=== PATIENT | female | born 2000 | race Caucasian/White ===

== ENCOUNTER → 2023-05-15 | Outpatient (CLI) | payer OTHER ==
--- NOTE | 2023-05-15 20:29 | CT ---
EXAMINATION TYPE: CT abdomen pelvis w con DATE OF EXAM: 05/15/2023 HISTORY: pain. hx of ovarian cysts CT DLP: 1427.6mGycm Automated Exposure Control for Dose Reduction was Utilized. CONTRAST: CT scan of the abdomen and pelvis is performed with oral and with IV Contrast, patient injected with 100ML mL of Isovue 300. COMPARISON: None. FINDINGS: LUNG BASES: No significant abnormality is appreciated. LIVER/GB: Cholecystectomy clips are present. PANCREAS: No significant abnormality is seen. SPLEEN: No significant abnormality is seen. ADRENALS: No significant abnormality is seen. KIDNEYS: Symmetrical corticomedullary uptake and excretion without hydronephrosis seen bilaterally. BOWEL: Oral contrast reaches level of the terminal ileum making evaluation of the colon slightly subo ptimal. No suspicious small or large bowel dilatation. No inflammatory change at base of cecum. Appen leda not seen and may be surgically absent. Contrast filled moderately distended stomach. UTERUS/ADNEXA: Anteverted uterus left ovary normal in size axial image 70. Right ovary slightly large r with oval hypodense 4.4 x 2.9 cm lesion axial image 71 could reflect ovarian cyst. Pelvic ultrasoun d can be performed to further evaluate if desired.. LYMPH NODES: No greater than 1cm abdominal or pelvic lymph nodes are appreciated. Few prominent but s ubcentimeter lymph nodes throughout the mesentery. OSSEOUS STRUCTURES: Moderate disc space narrowing lumbosacral junction. OTHER: No significant additional abnormality is seen. IMPRESSION: No significant acute finding is seen to account for patient's clinical symptoms. There is 4.4 cm right ovarian oval low dense lesion favoring ovarian cyst but can be better characterized wit h pelvic ultrasound if desired.
== END | disposition home or self-care (01) ==
LOC: RADCTMAIN 17:08
PROVIDERS: ATTEND Family Medicine
DX: N83.201 Unspecified ovarian cyst, right side (principal); N83.8 Other noninflammatory disorders of ovary, fallopian tube and broad ligament; N80.109 Endometriosis of ovary, unspecified side, unspecified depth
CPT/HCPCS: 74177; Q9967

== ENCOUNTER → 2024-02-27 | Outpatient (CLI) | payer OTHER ==
[2024-02-27 15:21] VITALS: BP 110/78; PULSE 103; RESP 18; TEMP 98.5
--- NOTE | 2024-02-27 15:44 | P.SLEEP ---
History of Present Illness DATE: 02/27/2024 CONSULTATION/NEW PATIENT EVALUATION HISTORY OF PRESENT ILLNESS/SLEEP-WAKE EVALUATION: 23-year-old lady had been e valuated in the sleep center for possible obstructive sleep apnea hypopnea syndrome. SLEEP SCHEDULE: Usually sleep schedule from 9:30 PM to 7 AM on weekdays and from 11 PM to 10 AM on weekend. FALLING ASLEEP: No problems with falling asleep, although there is a TV in bedroom. DURING SLEEP: Patient sleeps in different position, has positive history of palpitation. She may get out of bed once during the night. No history of hypnogogical hallucinations, sleep paralysis, or cataplexy. DURING THE DAY/WAKE STATE: In the morning patient wake up tired, has difficulties to pay attention, has problems with concentration and depression. [place] sleepiness scale is increased to 13. Usually patient does not take naps. PAST MEDICAL HISTORY: Headaches, neck pain, history of asthma, cyanosis pr oblems, bronchitis, anemia. PAST SURGICAL HISTORY: Tonsillectomy, cholecystectomy. MEDICATIONS: Melatonin several times a week, multivitamins, Aleve. SOCIAL HISTORY: Negative for smoking or using alcohol, alcohol. FAMILY HISTORY: Sleep apnea, cancer, diabetes, acid reflux. REVIEW OF SYSTEMS: Headaches, neck pain, tiredness and sleepiness during the day. No fevers. No double vision. No recent chest pain. No shortness of breath. No abdominal pain. No bleeding episodes. No blood in urine. No seizure episodes. PHYSICAL EXAMINATION: GENERAL: A pleasant patient without any distress. VITAL SIGNS: Please see below, body mass index 35.9. HEENT: PERRLA, EOMI. Evaluation of oropharynx showed tongue protrudes midline, low position of soft palate Mallampati 34. NECK: Supple. No JVD. Thyroid is not palpable. 17 inches in circumference. LUNGS: Clear to percussion and to auscultation. Good air exchange. No wheezing or rhonchi. HEART: S1, S2 regular. No murmurs, gallops or rubs. ABDOMEN: Soft and nontender. Bowel sounds are present. No organomegaly appreciated. EXTREMITIES: No clubbing or cyanosis. PARTS RUNNER: Awake, alert, and oriented x3. Cranial nerves 2 to 7 intact. There is no fasciculation or atrophy noted. No focal deficits observed. ASSESSMENT: 1. Low position of soft palate Mallampati 34, wide neck 17 inches in circumference, sleepiness [place] Sleepiness Scale increased to 13. Obstructive sleep apnea hypopnea syndrome. 2. Obesity, BMI 35.9. 3. Headaches. 4. Neck pain. 5 history of sleep talking. 6 . History of asthma. 7. History of sinus problems. 8. History of anemia. 9 . Status post tonsillectomy. 10. Status post cholecystectomy. PLAN: 1. Home sleep apnea test for evaluation of patient's breathing during sleep. 2. Following plan after reading sleep study. 3. Preferable position during sleep on the side. 4. No driving if patient feels any sleepiness. Patient is aware of civil and criminal liability for unsafe driving. 5. Sleep hygiene with regular sleep time for at least 7.5-8 hours. 6. Watching and losing weight. Thank you very much for referring this patient for consultation. Sincerely, Fer Martinez MD, PhD, FAASM. Diplomat of [employer], Sleep Medicine Board by [employer] [facility] [place] Past Medical History Past Medical History: Asthma Additional Past Medical History / Comment(s): ANEMIA, BRONCHITIS, HEADACHES, History of Any Multi-Drug Resistant Organisms: None Reported Past Surgical History: Cholecystectomy, Tonsillectomy Past Psychological History: No Psychological Hx Reported Smoking Status: Never smoker Past Alcohol Use History: Rare Past Drug Use History: None Reported - Past Family History Father Family Medical History: Diabetes Mellitus, Sleep Apnea/CPAP/BIPAP Additional Family Medical History / Comment(s): SNORING, Mother Family Medical History: Sleep Apnea/CPAP/BIPAP Additional Family Medical History / Comment(s): (SNORING, THYROID, LIVER PROBLEMS. Medications and Allergies Home Medications Medication Instructions Recorded Confirmed Type Melatonin 6 mg PO PRN MDD 6 02/27/24 History Physical Exam Vitals: Vital Signs Temp Pulse Resp BP Pulse Ox 02/27/24 14:54 98.5 F 103 H 18 110/78 98 Intake and Output 02/27/24 02/27/24 02/27/24 06:59 14:59 22:59 Other: Weight 99.45 kg Sleep Note - Sleep Data ESS Total: 13 - Sleep Note Sleep Note: Temperature: 98.5 F Pulse Rate: 103 Respiratory Rate: 18 Blood Pressure: 110/78 SpO2: 98 Height: 5 ft 5.33 in Weight: 99.45 kg BMI: Neck Circumference: 17
== END ==
LOC: MERGE 14:20 → 3 N SLEEP 14:28
PROVIDERS: ATTEND Internal Medicine
DX: G47.33 Obstructive sleep apnea (adult) (pediatric) (principal); E66.9 Obesity, unspecified; M54.2 Cervicalgia; R51.9 Headache, unspecified; G47.8 Other sleep disorders; J32.9 Chronic sinusitis, unspecified; D64.9 Anemia, unspecified; Z98.890 Other specified postprocedural states; Z90.49 Acquired absence of other specified parts of digestive tract; Z68.35 Body mass index [BMI] 35.0-35.9, adult
CPT/HCPCS: 99211

== ENCOUNTER → 2024-03-05 | Outpatient (CLI) | payer OTHER ==
--- NOTE | 2024-03-06 16:00 | P.PCN ---
Description of Procedure: CLINICAL: A home sleep apnea test has been done for confirmation of possible obstructive sleep apnea-hypopnea syndrome. DESCRIPTION OF PROCEDURE: RESULTS: Recording time was 8 hours 53 minutes. Evaluation time was 8 hours 41 minutes. Evaluation time is sufficient for making conclusion about results of the test. Raw data of sleep recording has been reviewed and is adequate. Respiratory channel showed 6 apneas and 6 hypopneas. Apnea-hypopnea index was 1.4 per hour. Pulse rate in the range between minimum 50, maximum 113, average 71 by computer calculation. Lowest desaturation was 92%. IMPRESSION: 1. No significant respiratory abnormalities have been documented during the sleep study. Normal oxygenation during sleep 2. Snoring have been documented during the sleep study. 3. [place] Sleepiness Scale increased to 13 which indicates sleepiness during the day. Please see other impressions from consultation. PLAN: 1. I will see patient for follow-up visit to explain results of the test and to discuss following plan. 2. Sleep hygiene with regular time in bed for at least 8 hours. 3. Watching and losing weight. 4. No driving if feeling any sleepiness. Thank you very much for allowing me to participate in the management of your patient. Sincerely, Fer Martinez MD, PhD, FAASM Diplomat of [employer] Sleep Medicine Board of [employer] [facility] [place]
== END ==
LOC: 3 N SLEEP 17:00
PROVIDERS: ATTEND Internal Medicine
DX: G47.33 Obstructive sleep apnea (adult) (pediatric) (principal); G47.10 Hypersomnia, unspecified

== ENCOUNTER → 2024-05-15 | Outpatient (CLI) | payer OTHER ==
[2024-05-15 15:09] VITALS: BP 113/79; PULSE 92; RESP 16; TEMP 98.4
--- NOTE | 2024-05-15 15:54 | P.PROGSL ---
Subjective DATE: 05/15/2024 FOLLOW UP VISIT. Patient returned to sleep center for follow-up visit to discuss results of home sleep apnea test and recommendations. I discussed results of home sleep apnea test with patient in details. Total apnea hypopnea index 1.4 which is in normal range. Lowest oxygen level is 92, which is normal. Patient continued to feel episodes of sleepiness during the day.. . [place] sleepiness scale is increased to 13. MEDICATIONS:1. Ventolin During physical exam: GENERAL: A pleasant patient without any distress. VITAL SIGNS: Please see below, weight 212 pounds, BMI 35.2. HEENT: PERRLA, EOMI. NECK: Supple. No JVD. LUNGS: Clear to percussion and to auscultation. Good air exchange. No wheezing or rhonchi. HEART: S1, S2 regular. ABDOMEN: Soft and nontender. EXTREMITIES: No clubbing or cyanosis. PILOT CAN ROUTER: Awake, alert, and oriented x3. No focal deficit. Impressions: 1. No significant respiratory abnormalities during his home sleep apnea test. Normal oxygenation during sleep. 2. Snoring have been documented during home sleep apnea test. 3. Obesity BMI 35.2. 4. Patient has symptoms of sleepiness. [place] Sleepiness Scale increased to 13. 5. History of asthma 6. History of sinus problems. Plan: 1. I discussed with patient possibility of multiple sleep latency test for ob jective fibrillation symptoms of excessive daytime sleepiness and possibly after that if necessary pharmacotherapy for excessive daytime sleepiness. Patient will think about that. 2. Sleep hygiene with regular time in bed for at least 8 hours. 3. Precautions related to driving. No driving if feel any sleepiness. Patient is aware about civil and criminal liability for unsafe driving, promised to follow recommendations. Thank you very much for allowing me to participate in the management of your patient. Fer Martinez MD, PhD, FAASM. Diplomat of [employer] [employer], Sleep Medicine Board by [employer] [facility] [place] cc: Mary Randall DO Objective - Vital Signs Vital Signs: Vital Signs Temp 98.4 F 05/15/24 15:08 Pulse 92 05/15/24 15:08 Resp 16 05/15/24 15:08 BP 113/79 05/15/24 15:08 Pulse Ox 98 05/15/24 15:08 FiO2 Intake & Output 05/14/24 05/15/24 05/15/24 18:59 06:59 18:59 Weight 96.162 kg Home Medications: Home Medications Medication Instructions Recorded Confirmed Type Melatonin 6 mg PO PRN MDD 6 02/27/24 History
== END ==
LOC: 3 N SLEEP 14:41
PROVIDERS: ATTEND Internal Medicine
DX: R06.83 Snoring (principal); E66.9 Obesity, unspecified; G47.10 Hypersomnia, unspecified; Z68.35 Body mass index [BMI] 35.0-35.9, adult; Z87.09 Personal history of other diseases of the respiratory system
CPT/HCPCS: 99212

== ENCOUNTER 2024-08-24 03:34 | Inpatient (IN) | payer OTHER ==
[2024-08-24] MEDS: SODIUM CHLORIDE 0.9% 1,000 ML IV STA (04:30)
[2024-08-24] MEDS: HYDROmorphone 1 MG/ML 1 ML SYRINGE IVP STA (04:32)
[2024-08-24 04:52] LABS: Basophils % (A) 0 %; Eosinophils # (A) 0.1 k/uL (0-0.7); Eosinophils % (A) 1 %; HCT 38.7 % (34.0-46.0); HGB 13.8 gm/dL (11.4-16.0); Lymphocytes # (A) 0.9 k/uL (1.0-4.8); Lymphocytes % (A) 6 %; MCH 30.1 pg (25.0-35.0); MCHC 35.6 g/dL (31.0-37.0); MCV 84.5 fL (80.0-100.0); Mean Platelet Volume 7.4; Monocytes # (A) 0.6 k/uL (0-1.0); Monocytes % (A) 5 %; Neutrophils # (A) 11.9 k/uL (1.3-7.7); Neutrophils % (A) 88 %; Platelet Count 260 k/uL (150-450); RBC 4.58 m/uL (3.80-5.40); RDW 13.5 % (11.5-15.5); WBC 13.6 k/uL (3.8-10.6)
[2024-08-24 05:08] LABS: ALT 26 U/L (4-34); AST 31 U/L (14-36); African American GFR (CKD) >90 (>60 ml/min/1.73 sqM); Albumin 4.6 g/dL (3.5-5.0); Alkaline Phosphatase 83 U/L (38-126); Anion Gap 14 mmol/L; Blood Urea Nitrogen 7 mg/dL (7-17); Calcium 9.7 mg/dL (8.4-10.2); Carbon Dioxide 17 mmol/L (22-30); Chloride 104 mmol/L (98-107); Glucose 160 mg/dL (74-99); Non-African American GFR(CKD) >90 (>60 ml/min/1.73 sqM); Potassium 3.8 mmol/L (3.5-5.1); Sodium 135 mmol/L (137-145); Total Bilirubin 1.5 mg/dL (0.2-1.3); Total Protein 7.2 g/dL (6.3-8.2)
[2024-08-24 05:53] LABS: Appearance,Urine Clear (Clear); Bilirubin,Urine Negative (Negative); Blood,Urine Negative (Negative); Color,Urine Colorless; Glucose,Urine (UA) Negative (Negative); Ketones,Urine Negative (Negative); Leukocyte Esterase,Urine Negative (Negative); Nitrite,Urine Negative (Negative); Protein,Urine Negative (Negative); Specific Gravity,Urine 1.005 (1.001-1.035); Urobilinogen,Urine <2.0 mg/dL (<2.0)
--- NOTE | 2024-08-24 06:19 | ED ---
General Adult HPI - General Chief complaint: Nausea/Vomiting/Diarrhea Stated complaint: Fever, Tachy Time Seen by Provider: 08/24/24 03:40 Source: EMS Mode of arrival: EMS - History of Present Illness Initial comments: 23-year-old female presents the emergency department reporting diffuse bodyaches and tachycardia. Patient states that she has had symptoms since 8 PM. She has diffuse myalgias with pain "all over". Reports that she found that she had a fever at home and therefore took some Tylenol around midnight. She feels as if her heart is racing. She denies any focal pain. No vomiting. No abdominal pain. Does admit to chest pain with shortness of breath. Denies history of cardiac disease. Denies any sick with similar symptoms. No concern for pregn zana. No vaginal bleeding or discharge. Patient is wearing a boot on her right leg. States that she twisted it at work a couple weeks ago. Denies history of DVT or PE. No significant swelling of the left lower extremity. No other alleviating, precipitating or modifying factors - Related Data Previous Rx's Medication Instructions Recorded Famotidine [Pepcid] 20 mg PO DAILY #7 tablet 08/27/24 cefUROXime axetiL [Ceftin] 500 mg PO BID 7 Days #14 tab 08/27/24 Allergies Allergy/AdvReac Type Severity Reaction Status Date / Time No Known Allergies Allergy Verified 08/24/24 09:40 Review of Systems ROS Statement: Those systems with pertinent positive or pertinent negative responses have been documented in the HPI. ROS Other: All systems not noted in ROS Statement are negative. Past Medical History Past Medical History: Asthma Additional Past Medical History / Comment(s): ANEMIA, BRONCHITIS, HEADACHES, History of Any Multi-Drug Resistant Organisms: None Reported Past Surgical History: Cholecystectomy, Tonsillectomy Past Psychological History: No Psychological Hx Reported Smoking Status: Never smoker Past Alcohol Use History: Rare Past Drug Use History: None Reported - Past Family History Father Family Medical History: Diabetes Mellitus, Sleep Apnea/CPAP/BIPAP Additional Family Medical History / Comment(s): SNORING, Mother Family Medical History: Sleep Apnea/CPAP/BIPAP Additional Family Medical History / Comment(s): (SNORING, THYROID, LIVER PROBLEMS. General Exam General appearance: alert, in no apparent distress Head exam: Present: atraumatic, normocephalic, normal inspection Eye exam: Present: normal appearance, PERRL, EOMI. Absent: scleral icterus, conjunctival injection, periorbital swelling ENT exam: Present: normal exam, mucous membranes moist Neck exam: Present: normal inspection. Absent: tenderness, meningismus, lymphadenopathy Respiratory exam: Present: normal lung sounds bilaterally. Absent: respiratory distress, wheezes, rales, rhonchi, stridor Cardiovascular Exam: Present: normal rhythm, tachycardia, normal heart sounds. Absent: systolic murmur, diastolic murmur, rubs, gallop, clicks GI/Abdominal exam: Present: soft, normal bowel sounds. Absent: distended, tenderness, guarding, rebound, rigid Extremities exam: Present: normal inspection, full ROM, normal capillary refill. Absent: tenderness, pedal edema, joint swelling, calf tenderness Back exam: Present: normal inspection Neurological exam: Present: alert, oriented X3, CN II-XII intact Psychiatric exam: Present: normal affect, normal mood Skin exam: Present: warm, dry, intact, normal color. Absent: rash Course Vital Signs 08/24/24 08/24/24 08/24/24 03:37 05:00 06:08 Temperature 99.3 F 99.1 F 98.8 F Pulse Rate 152 H 116 H 126 H Respiratory 24 20 18 Rate Blood Pressure 122/85 109/76 115/78 O2 Sat by Pulse 98 96 97 Oximetry 08/24/24 08/24/24 08/24/24 06:47 07:41 10:03 Temperature 98.2 F Pulse Rate 104 H 115 H 109 H Respiratory 18 18 16 Rate Blood Pressure 104/67 113/64 118/82 O2 Sat by Pulse 96 97 98 Oximetry 08/24/24 08/24/24 08/24/24 10:38 12:49 13:39 Temperature Pulse Rate 104 H 73 78 Respiratory 16 18 16 Rate Blood Pressure 118/82 108/69 102/59 O2 Sat by Pulse 99 98 97 Oximetry 08/24/24 08/24/24 16:32 17:44 Temperature Pulse Rate 68 73 Respiratory 18 16 Rate Blood Pressure 107/64 100/65 O2 Sat by Pulse 98 99 Oximetry Medical Decision Making - Medical Decision Making Was pt. sent in by a medical professional or institution (, PA, ART [facility]PRAISER, urgent care, hospital, or [facility]...) When possible be specific @ -No Did you speak to anyone other than the patient for history (EMS, parent, family, police, friend...)? What history was obtained from this source @ -Spoke with EMS for history Did you review nursing and triage notes (agree or disagree)? Why? @ -I reviewed and agree with nursing and triage notes Were old charts reviewed (outside hosp., previous admission, EMS record, old EKG, old radiological studies, urgent care reports/EKG's, [facility] records)? Report findings @ -No old charts were reviewed Differential Diagnosis (chest pain, altered mental status, abdominal pain women, abdominal pain men, vaginal bleeding, weakness, fever, dyspnea, syncope, headache, dizziness, GI bleed, back pain, seizure, CVA, palpatations, mental health, musculoskeletal)? @ -Differential Dyspnea: Coronary syndrome, arrhythmia, tamponade, asthma, COPD, pulmonary embolism, pneumonia, pneumothorax, pulmonary effusion, anaphylaxis, diabetic ketoacidosis, flailed chest, pulmonary contusion, diaphragmatic rupture, anemia, neuromuscular, this is not meant to be an all-inclusive list. Differential Fever: Pneumonia, viral URI, endocarditis, myocarditis, pericarditis, otitis, sinusitis, peritonsillar Abscess, retropharyngeal Abscess, epiglottitis, peritonitis, appendicitis, Hyacinth cystitis, diverticulitis, hepatitis, colitis, UTI, PID, TOA, pyelonephritis, prostatitis, epididymitis, meningitis, encephalitis, pulmonary embolism, CVA, thyroid storm, pancreatitis, adrenal crisis, cavernous sinus thrombosis, this is not meant to be an all-inclusive list. EKG interpreted by me (3pts min.). @ -Yes and demonstrates sinus tachycardia with a rate of 142. LA interval 127. QRS 86. QTc of 384. No acute ST segment elevations or depressions X-rays interpreted by me (1pt min.). @ -Yes and demonstrates no acute process CT interpreted by me (1pt min.). @ -None done U/S interpreted by me (1pt. min.). @ -None done What testing was considered but not performed or refused? (CT, X-rays, U/S, lab s)? Why? @ -None What meds were considered but not given or refused? Why? @ -None Did you discuss the management of the patient with other professionals (professionals i.e. , PA, [facility]ER, lab, RT, psych nurse, health social work professor, manager corporate marketing, teacher, customer service security officer, transplant case manager)? Give summary @ -Spoke with Dr. Grant for admission Was smoking cessation discussed for >3mins.? @ -No Was critical care preformed (if so, how long)? @ -No Were there social determinants of health that impacted care today? How? (Homelessness, low income, unemployed, alcoholism, drug addiction, transportation, low edu. Level, literacy, decrease access to med. care, nursing home, rehab)? @ -No Was there de-escalation of care discussed even if they declined (Discuss DNR or withdrawal of care, Hospice)? DNR status @ -No What co-morbidities impacted this encounter? (DM, HTN, Smoking, COPD, CAD, Cancer, CVA, ARF, Chemo, Hep., AIDS, mental health diagnosis, sleep apnea, morbid obesity)? @ -None Was patient admitted / discharged? Hospital course, mention meds given and route, prescriptions, significant lab abnormalities, going to OR and other pertinent info. @ -Upon arrival patient seen and evaluated in room 19. Thorough history and physical exam was performed. Patient does present to the emergency department in extreme distress. She is tachycardic and moaning. IV was established. Laboratory studies are conducted. Chest x-ray was performed. Upon return of the results they are discussed with the patient. Laboratory studies and imaging appear normal. Patient is adamant that she is sick and something is wrong. I did explain to her that she would require further admission for further management. Will admit for myalgias and tachycardia. Spoke with Dr. Grant for admission Undiagnosed new problem with uncertain prognosis? @ -Yes Drug Therapy requiring intensive monitoring for toxicity (Heparin, Nitro, Insulin, Cardizem)? @ -No Were any procedures done? @ -No Diagnosis/symptom? @ -Acute myalgias, acute tachycardia Acute, or Chronic, or Acute on Chronic? @ -Acute Uncomplicated (without systemic symptoms) or Complicated (systemic symptoms)? @ -Complicated Side effects of treatment? @ -No Exacerbation, Progression, or Severe Exacerbation? @ -No Poses a threat to life or bodily function? How? (Chest pain, USA, SD, pneumonia, PE, COPD, DKA, ARF, appy, cholecystitis, CVA, Diverticulitis, Homicidal, Suicidal, threat to staff... and all critical care pts) @ -No - Lab Data Result diagrams: 08/26/24 04:41 08/26/24 04:41 Lab Results 08/24/24 08/24/24 08/24/24 Range/Units 04:21 04:21 04:21 WBC 13.6 H (3.8-10.6) k/uL RBC 4.58 (3.80-5.40) m/uL Hgb 13.8 (11.4-16.0) gm/dL Hct 38.7 (34.0-46.0) % MCV 84.5 (80.0-100.0) fL MCH 30.1 (25.0-35.0) pg MCHC 35.6 (31.0-37.0) g/dL RDW 13.5 (11.5-15.5) % Plt Count 260 (150-450) k/uL MPV 7.4 Neutrophils % 88 % Lymphocytes % 6 % Monocytes % 5 % Eosinophils % 1 % Basophils % 0 % Neutrophils # 11.9 H (1.3-7.7) k/uL Lymphocytes # 0.9 L (1.0-4.8) k/uL Monocytes # 0.6 (0-1.0) k/uL Eosinophils # 0.1 (0-0.7) k/uL Basophils # 0.0 (0-0.2) k/uL D-Dimer (<0.60) mg/L FEU Sodium 135 L (137-145) mmol/L Potassium 3.8 (3.5-5.1) mmol/L Chloride 104 (98-107) mmol/L Carbon Dioxide 17 L (22-30) mmol/L Anion Gap 14 mmol/L BUN 7 (7-17) mg/dL Creatinine 0.52 (0.52-1.04) mg/dL Est GFR (CKD-EPI)AfAm >90 (>60 ml/min/1.73 sqM) Est GFR (CKD-EPI)NonAf >90 (>60 ml/min/1.73 sqM) Glucose 160 H (74-99) mg/dL Lactic Ac Sepsis Rflx Plasma Lactic Acid Miguelangel (0.7-2.0) mmol/L Calcium 9.7 (8.4-10.2) mg/dL Total Bilirubin 1.5 H (0.2-1.3) mg/dL AST 31 (14-36) U/L ALT 26 (4-34) U/L Alkaline Phosphatase 83 (38-126) U/L Total Protein 7.2 (6.3-8.2) g/dL Albumin 4.6 (3.5-5.0) g/dL TSH (0.465-4.680) mIU/L Urine Color Urine Appearance (Clear) Urine pH (5.0-8.0) Ur Specific [place] (1.001-1.035) Urine Protein (Negative) Urine Glucose (UA) (Negative) Urine Ketones (Negative) Urine Blood (Negative) Urine Nitrite (Negative) Urine Bilirubin (Negative) Urine Urobilinogen (<2.0) mg/dL Ur Leukocyte Esterase (Negative) Urine HCG, Qual (Not Detectd) Urine Opiates Screen (NotDetected) Ur Oxycodone Screen (NotDetected) Urine Methadone Screen (NotDetected) Ur Barbiturates Screen (NotDetected) U Tricyclic Antidepress (NotDetected) Ur Phencyclidine Scrn (NotDetected) Ur Amphetamines Screen (NotDetected) U Methamphetamines Scrn (NotDetected) U Benzodiazepines Scrn (NotDetected) Urine Cocaine Screen (NotDetected) U Marijuana (THC) Screen (NotDetected) Heterophile Antibody Negative (Negative) Influenza Type A (PCR) (Not Detectd) Influenza Type B (PCR) (Not Detectd) RSV (PCR) (Not Detectd) SARS-CoV-2 (PCR) (Not Detectd) 08/24/24 08/24/24 08/24/24 Range/Units 04:21 04:24 04:28 WBC (3.8-10.6) k/uL RBC (3.80-5.40) m/uL Hgb (11.4-16.0) gm/dL Hct (34.0-46.0) % MCV (80.0-100.0) fL MCH (25.0-35.0) pg MCHC (31.0-37.0) g/dL RDW (11.5-15.5) % Plt Count (150-450) k/uL MPV Neutrophils % % Lymphocytes % % Monocytes % % Eosinophils % % Basophils % % Neutrophils # (1.3-7.7) k/uL Lymphocytes # (1.0-4.8) k/uL Monocytes # (0-1.0) k/uL Eosinophils # (0-0.7) k/uL Basophils # (0-0.2) k/uL D-Dimer 0.31 (<0.60) mg/L FEU Sodium (137-145) mmol/L Potassium (3.5-5.1) mmol/L Chloride (98-107) mmol/L Carbon Dioxide (22-30) mmol/L Anion Gap mmol/L BUN (7-17) mg/dL Creatinine (0.52-1.04) mg/dL Est GFR (CKD-EPI)AfAm (>60 ml/min/1.73 sqM) Est GFR (CKD-EPI)NonAf (>60 ml/min/1.73 sqM) Glucose (74-99) mg/dL Lactic Ac Sepsis Rflx Plasma Lactic Acid Miguelangel 2.9 H* (0.7-2.0) mmol/L Calcium (8.4-10.2) mg/dL Total Bilirubin (0.2-1.3) mg/dL AST (14-36) U/L ALT (4-34) U/L Alkaline Phosphatase (38-126) U/L Total Protein (6.3-8.2) g/dL Albumin (3.5-5.0) g/dL TSH (0.465-4.680) mIU/L Urine Color Urine Appearance (Clear) Urine pH (5.0-8.0) Ur Specific [place] (1.001-1.035) Urine Protein (Negative) Urine Glucose (UA) (Negative) Urine Ketones (Negative) Urine Blood (Negative) Urine Nitrite (Negative) Urine Bilirubin (Negative) Urine Urobilinogen (<2.0) mg/dL Ur Leukocyte Esterase (Negative) Urine HCG, Qual (Not Detectd) Urine Opiates Screen (NotDetected) Ur Oxycodone Screen (NotDetected) Urine Methadone Screen (NotDetected) Ur Barbiturates Screen (NotDetected) U Tricyclic Antidepress (NotDetected) Ur Phencyclidine Scrn (NotDetected) Ur Amphetamines Screen (NotDetected) U Methamphetamines Scrn (NotDetected) U Benzodiazepines Scrn (NotDetected) Urine Cocaine Screen (NotDetected) U Marijuana (THC) Screen (NotDetected) Heterophile Antibody (Negative) Influenza Type A (PCR) Not Detected (Not Detectd) Influenza Type B (PCR) Not Detected (Not Detectd) RSV (PCR) Not Detected (Not Detectd) SARS-CoV-2 (PCR) Not Detected (Not Detectd) 08/24/24 08/24/24 08/24/24 Range/Units 05:33 05:45 05:45 WBC (3.8-10.6) k/uL RBC (3.80-5.40) m/uL Hgb (11.4-16.0) gm/dL Hct (34.0-46.0) % MCV (80.0-100.0) fL MCH (25.0-35.0) pg MCHC (31.0-37.0) g/dL RDW (11.5-15.5) % Plt Count (150-450) k/uL MPV Neutrophils % % Lymphocytes % % Monocytes % % Eosinophils % % Basophils % % Neutrophils # (1.3-7.7) k/uL Lymphocytes # (1.0-4.8) k/uL Monocytes # (0-1.0) k/uL Eosinophils # (0-0.7) k/uL Basophils # (0-0.2) k/uL D-Dimer (<0.60) mg/L FEU Sodium (137-145) mmol/L Potassium (3.5-5.1) mmol/L Chloride (98-107) mmol/L Carbon Dioxide (22-30) mmol/L Anion Gap mmol/L BUN (7-17) mg/dL Creatinine (0.52-1.04) mg/dL Est GFR (CKD-EPI)AfAm (>60 ml/min/1.73 sqM) Est GFR (CKD-EPI)NonAf (>60 ml/min/1.73 sqM) Glucose (74-99) mg/dL Lactic Ac Sepsis Rflx Y Plasma Lactic Acid Miguelangel (0.7-2.0) mmol/L Calcium (8.4-10.2) mg/dL Total Bilirubin (0.2-1.3) mg/dL AST (14-36) U/L ALT (4-34) U/L Alkaline Phosphatase (38-126) U/L Total Protein (6.3-8.2) g/dL Albumin (3.5-5.0) g/dL TSH (0.465-4.680) mIU/L Urine Color Colorless Urine Appearance Clear (Clear) Urine pH 6.0 (5.0-8.0) Ur Specific [place] 1.005 (1.001-1.035) Urine Protein Negative (Negative) Urine Glucose (UA) Negative (Negative) Urine Ketones Negative (Negative) Urine Blood Negative (Negative) Urine Nitrite Negative (Negative) Urine Bilirubin Negative (Negative) Urine Urobilinogen <2.0 (<2.0) mg/dL Ur Leukocyte Esterase Negative (Negative) Urine HCG, Qual Not Detected (Not Detectd) Urine Opiates Screen (NotDetected) Ur Oxycodone Screen (NotDetected) Urine Methadone Screen (NotDetected) Ur Barbiturates Screen (NotDetected) U Tricyclic Antidepress (NotDetected) Ur Phencyclidine Scrn (NotDetected) Ur Amphetamines Screen (NotDetected) U Methamphetamines Scrn (NotDetected) U Benzodiazepines Scrn (NotDetected) Urine Cocaine Screen (NotDetected) U Marijuana (THC) Screen (NotDetected) Heterophile Antibody (Negative) Influenza Type A (PCR) (Not Detectd) Influenza Type B (PCR) (Not Detectd) RSV (PCR) (Not Detectd) SARS-CoV-2 (PCR) (Not Detectd) 08/24/24 08/24/24 08/24/24 Range/Units 05:45 09:03 09:03 WBC (3.8-10.6) k/uL RBC (3.80-5.40) m/uL Hgb (11.4-16.0) gm/dL Hct (34.0-46.0) % MCV (80.0-100.0) fL MCH (25.0-35.0) pg MCHC (31.0-37.0) g/dL RDW (11.5-15.5) % Plt Count (150-450) k/uL MPV Neutrophils % % Lymphocytes % % Monocytes % % Eosinophils % % Basophils % % Neutrophils # (1.3-7.7) k/uL Lymphocytes # (1.0-4.8) k/uL Monocytes # (0-1.0) k/uL Eosinophils # (0-0.7) k/uL Basophils # (0-0.2) k/uL D-Dimer (<0.60) mg/L FEU Sodium (137-145) mmol/L Potassium (3.5-5.1) mmol/L Chloride (98-107) mmol/L Carbon Dioxide (22-30) mmol/L Anion Gap mmol/L BUN (7-17) mg/dL Creatinine (0.52-1.04) mg/dL Est GFR (CKD-EPI)AfAm (>60 ml/min/1.73 sqM) Est GFR (CKD-EPI)NonAf (>60 ml/min/1.73 sqM) Glucose (74-99) mg/dL Lactic Ac Sepsis Rflx Plasma Lactic Acid Miguelangel 1.2 (0.7-2.0) mmol/L Calcium (8.4-10.2) mg/dL Total Bilirubin (0.2-1.3) mg/dL AST (14-36) U/L ALT (4-34) U/L Alkaline Phosphatase (38-126) U/L Total Protein (6.3-8.2) g/dL Albumin (3.5-5.0) g/dL TSH 2.410 (0.465-4.680) mIU/L Urine Color Urine Appearance (Clear) Urine pH (5.0-8.0) Ur Specific [place] (1.001-1.035) Urine Protein (Negative) Urine Glucose (UA) (Negative) Urine Ketones (Negative) Urine Blood (Negative) Urine Nitrite (Negative) Urine Bilirubin (Negative) Urine Urobilinogen (<2.0) mg/dL Ur Leukocyte Esterase (Negative) Urine HCG, Qual (Not Detectd) Urine Opiates Screen Detected H (NotDetected) Ur Oxycodone Screen Not Detected (NotDetected) Urine Methadone Screen Not Detected (NotDetected) Ur Barbiturates Screen Not Detected (NotDetected) U Tricyclic Antidepress Not Detected (NotDetected) Ur Phencyclidine Scrn Not Detected (NotDetected) Ur Amphetamines Screen Not Detected (NotDetected) U Methamphetamines Scrn Not Detected (NotDetected) U Benzodiazepines Scrn Not Detected (NotDetected) Urine Cocaine Screen Not Detected (NotDetected) U Marijuana (THC) Screen Not Detected (NotDetected) Heterophile Antibody (Negative) Influenza Type A (PCR) (Not Detectd) Influenza Type B (PCR) (Not Detectd) RSV (PCR) (Not Detectd) SARS-CoV-2 (PCR) (Not Detectd) Disposition Clinical Impression: Tachycardia, Hyperalgesia, Myalgia Disposition: ADMITTED IP TO THIS [facility] Condition: Stable Is patient prescribed a controlled substance at d/c from ED?: No Time of Disposition: 08:22 Decision to Admit Reason: Admit from EC Decision Date: 08/24/24 Decision Time: 08:22
--- NOTE | 2024-08-24 07:24 | XR ---
EXAMINATION TYPE: XR chest 2V DATE OF EXAM: 08/24/2024 COMPARISON: None INDICATION: Short of breath TECHNIQUE: Frontal and lateral views of the chest are obtained. FINDINGS: The heart size is normal. The pulmonary vasculature is normal. The lungs are clear. IMPRESSION: 1. No acute pulmonary process. [facility], Workstation: [facility], 08/24/2024 7:22 AM
[2024-08-24] MEDS ORDERED: NALOXONE 0.4 MG/ML 1 ML VIAL IV PRN (08:22)
[2024-08-24] MEDS: SODIUM CHLORIDE 0.9% 1,000 ML IV SCH (09:10)
[2024-08-24 09:45] LABS: Amphetamine Screen,Urine Not Detected (NotDetected); Barbiturate Screen,Urine Not Detected (NotDetected); Benzodiazepines Screen,Urine Not Detected (NotDetected); Cocaine Screen,Urine Not Detected (NotDetected); Methadone Screen, Urine Not Detected (NotDetected); Opiate Screen,Urine Detected (NotDetected); Oxycodone Screen, Urine Not Detected (NotDetected); Phencyclidine Screen,Urine Not Detected (NotDetected); Tricyclic Antidepressant,Urine Not Detected (NotDetected); Urn Cannabinoid Scrn Not Detected (NotDetected)
[2024-08-24] MEDS: IBUPROFEN 400 MG TAB PO PRN (10:42)
[2024-08-24] MEDS: ACETAMINOPHEN TAB 325 MG TAB PO PRN (10:43)
[2024-08-24] MEDS ORDERED: HYDROmorphone 0.5 MG/0.5 ML SYRINGE IVP PRN (15:04)
--- NOTE | 2024-08-24 15:42 | XR ---
EXAMINATION TYPE: XR ankle complete LT DATE OF EXAM: 08/24/2024 3:37 PM CLINICAL INDICATION: Female, 23 years old with history of fracture; [facility] COMPARISON: None TECHNIQUE: XR ankle complete LT; ankle is imaged in frontal, lateral and oblique projections. FINDINGS: There is no evidence of acute osseous pathology. No evidence of subluxation or dislocation. Kager's fat pad is intact. Mild soft tissue swelling around the ankle. No radiopaque foreign bodies are ident ified. IMPRESSION: 1. No evidence of acute fracture. 2. Subcutaneous swelling around the ankle likely secondary to underlying soft tissue injury. [facility], , 08/24/2024 3:39 PM
[2024-08-24] MEDS: HEPARIN SODIUM,PORCINE 5,000 UNIT/ML 1 ML VIAL SQ SCH (20:18)
--- NOTE | 2024-08-25 02:16 | HP ---
HISTORY AND PHYSICAL HISTORY OF PRESENT ILLNESS: This is a 23-year-old woman with a past medical history of multiple medical problems including asthma, anemia, bronchitis; was complaining of tachycardia, fever, and weakness. The patient was taken to [facility] and was admitted for further evaluation and treatment. The patient apparently slipped and fell and was evaluated by workers' comp in [facility] and the patient is immobilized on the left ankle. There is no history of any fever, rigors, or chills at this time. PAST MEDICAL HISTORY: Asthma, anemia, bronchitis, headaches. Rest of history and rest of the chart is also reviewed. HOME MEDICATIONS: Reviewed include none. ALLERGIES: None. FAMILY HISTORY: History of diabetes mellitus and sleep apnea. SOCIAL HISTORY: No history of smoking. No alcohol. REVIEW OF SYSTEMS: Fourteen-point review of systems negative except as mentioned earlier. PHYSICAL EXAMINATION: VITAL SIGNS: Pulse is 104, blood pressure 118/80, respirations 16. HEENT: Conjunctivae normal. CARDIOVASCULAR: S1 and S2. RESPIRATIONS: Bilateral breath sounds diminished at the bases. No rhonchi. No crackles. ABDOMEN: Soft, obese. Nontender. LEGS: Status post left ankle sprain versus fracture. LABORATORY DATA: Reviewed include sodium 135. Lactic acid n. ASSESSMENT: 1. Tachycardia, fever for evaluation, to rule out sepsis with lactic acidemia. 2. Left ankle sprain, rule out fracture. 3. Elevated WBC. 4. Asthma. 5. Anemia. 6. Bronchitis. 7. Headaches. RECOMMENDATIONS: This 23-year-old woman presented with multiple complex medical issues. We will monitor the patient closely. I would recommend symptomatic treatment. The patient has some features of sepsis and I would recommend empiric antibiotics, Infectious Disease evaluation, Orthopedic consultation to evaluate the ankle. Otherwise, resume the home medications. DVT prophylaxis. Overall prognosis guarded because of multiple complex medical conditions. Further recommendations to follow. See orders for further details. MMODL / IJN: [id number] / MTDD
[2024-08-25 08:50] LABS: Basophils # (A) 0.02 X 10*3/uL (0.00-0.10); Basophils % (A) 0.3 %; Eosinophils # (A) 0.06 X 10*3/uL (0.04-0.35); Eosinophils % (A) 0.9 %; HCT 31.8 % (37.2-46.3); HGB 10.9 g/dL (12.0-15.0); Lymphocytes # (A) 2.49 X 10*3/uL (0.90-5.00); Lymphocytes % (A) 37.1 %; MCH 30.1 pg (27.0-32.0); MCHC 34.3 g/dL (32.0-37.0); MCV 87.8 FL (80.0-97.0); Mean Platelet Volume 10.6 FL (9.5-12.2); Monocytes # (A) 0.83 X 10*3/uL (0.20-1.00); Monocytes % (A) 12.4 %; NRBC Per 100 WBC 0 X 10*3/uL (0.00-0.01); Neutrophils # (A) 3.29 X 10*3/uL (1.80-7.70); Neutrophils % (A) 48.9 %; Platelet Count 210 X 10*3/uL (140-440); RBC 3.62 X 10*6/uL (4.10-5.20); RDW 13.1 % (11.5-14.5); WBC 6.72 X 10*3/uL (4.50-10.00)
[2024-08-25 08:52] LABS: ALT 24 U/L (8-44); AST 19 U/L (13-35); Albumin 3.7 g/dL (3.8-4.9); Albumin/Globulin Ratio 2.06 Ratio (1.60-3.17); Alkaline Phosphatase 85 U/L (41-126); Blood Urea Nitrogen 7.7 mg/dL (9.0-27.0); Calcium 7.9 mg/dL (8.7-10.3); Carbon Dioxide 19.9 mmol/L (21.6-31.8); Chloride 112 mmol/L (96-109); Globulin 1.8 g/dL (1.6-3.3); Glucose 112 mg/dL (70-110); Sodium 142 mmol/L (135-145); Total Bilirubin 0.5 mg/dL (0.3-1.2); Total Protein 5.5 g/dL (6.2-8.2)
[2024-08-25] MEDS: HYDROcodone/APAP 5-325MG 1 EACH TAB PO PRN (09:02)
--- NOTE | 2024-08-25 10:23 | P.CRDCN ---
History of Present Illness History of present illness: HISTORY OF PRESENT ILLNESS: This is a 23-year-old female with a past medical history significant for asthma and morbid obesity. Patient does not follow with a permanent waver. We have been a sked to see the patient in consultation for tachycardia. Patient examined at the bedside. Patient states that she initially had flulike symptoms for the past couple days. She states that her symptoms began to increase in severity and she had pain "all over" her body. She does report that she was short of breath at home and had some wheezing and a cough. She does report having some palpitations yesterday but none today. She also reports a fever at home. Patient also gives history that she slipped and fell a couple weeks ago and was found to have an ankle sprain. She is a non-smoker. Initial EKG revealed sinus tachycardia with heart rate of 142. At the time of examination, telemetry r eveals sinus mechanism with a heart rate in the 80s. DIAGNOSTICS: - EKG reveals sinus tachycardia with no signs of acute ischemia - Chest xray negative for acute process - Laboratory data: WBC 6.72. Hemoglobin 10.9. Platelet count 210. D-dimer 0.31. Sodium 142. Potassium 4.0. BUN 7.7. Creatinine 0.5. Lactic acid 2.9. Repeat 1.2. TSH 2.410. - Current home cardiac medications include none REVIEW OF SYSTEMS: At the time of my exam: CONSTITUTIONAL: Denies fever or chills. HEENT: Denies blurred vision, vision changes, or eye pain. Denies hemoptysis CARDIOVASCULAR: Denies chest pain. Denies orthopnea. Denies PND. Denies palpitations RESPIRATORY: Denies shortness of breath. GASTROINTESTINAL: Denies abdominal pain. Denies nausea or vomiting. HEMATOLOGIC: Denies bleeding disorders. GENITOURINARY: Denies any blood in urine. SKIN: Denies pruitis. Denies rash. PHYSICAL EXAM: VITAL SIGNS: Reviewed. GENERAL: Well-developed in no acute distress. HEENT: Head is normocephalic. Pupils are equal, round. Sclerae anicteric. Mucous membranes of the mouth are moist. Neck supple. No JVD or thyromegaly LUNGS: Respirations even and unlabored. Lungs essentially clear to auscultation bilaterally. HEART: Regular rate and rhythm. S1 and S2 heard. ABDOMEN: Soft. Nondistended. Nontender. EXTREMITIES: Normal range of motion. No clubbing or cyanosis. Peripheral pulses intact. No lower extremity edema NEUROLOGIC: Awake and alert. Oriented x 3. ASSESSMENT: Flulike symptoms with fever at home, possible viral illness Sinus tachycardia, physiological, secondary to above History of asthma Morbid obesity: BMI 41.6 Recent mechanical fall with left ankle sprain PLAN: Obtain 2D echo to assess cardiac structure and function Sinus tachycardia is physiological in nature secondary to acute illness Continue telemetry monitoring If 2D echo does not reveal any significant abnormalities, no further cardiac workup will be necessary Nurse practitioner note has been reviewed by physician. Signing provider agrees with the documented findings, assessment, and plan of care documented by CUSTOMER EXPERIENCE STRATEGIST as a scribe. Past Medical History Past Medical History: Asthma Additional Past Medical History / Comment(s): ANEMIA, BRONCHITIS, HEADACHES, History of Any Multi-Drug Resistant Organisms: None Reported Past Surgical History: Cholecystectomy, Tonsillectomy Past Anesthesia/Blood Transfusion Reactions: No Reported Reaction Past Psychological History: No Psychological Hx Reported Smoking Status: Never smoker Past Alcohol Use History: Rare Past Drug Use History: None Reported - Past Family History Father Family Medical History: Diabetes Mellitus, Sleep Apnea/CPAP/BIPAP Additional Family Medical History / Comment(s): SNORING, Mother Family Medical History: Sleep Apnea/CPAP/BIPAP Additional Family Medical History / Comment(s): (SNORING, THYROID, LIVER PROBLEMS. Medications and Allergies Home Medications Medication Instructions Recorded Confirmed Type No Known Home Medications 08/24/24 08/24/24 History Allergies Allergy/AdvReac Type Severity Reaction Status Date / Time No Known Allergies Allergy Verified 08/24/24 09:40 Physical Exam Vitals: Vital Signs Temp Pulse Pulse Resp BP BP Pulse Ox 08/25/24 01:23 98.2 F 88 17 106/69 96 08/24/24 20:00 18 08/24/24 18:30 98.5 F 93 16 116/79 98 08/24/24 17:44 73 16 100/65 99 08/24/24 16:32 68 18 107/64 98 08/24/24 13:39 78 16 102/59 97 08/24/24 12:49 73 18 108/69 98 08/24/24 10:38 104 H 16 118/82 99 08/24/24 10:03 109 H 16 118/82 98 Intake and Output 08/24/24 08/25/24 08/25/24 22:59 06:59 14:59 Other: Voiding Method Bedside Commode Bedside Commode # Voids 2 2 Weight 113.398 kg Results 08/25/24 04:50 08/25/24 04:50 Current Medications Generic Name Dose Route Start Last Admin Trade Name Freq PRN Reason Stop Dose Admin Acetaminophen 650 mg 08/24/24 08:22 08/24/24 10:43 Acetaminophen Tab 325 Mg Tab PO 650 mg Q6HR PRN Administration Mild Pain or Fever > 100.5 Hydrocodone Bitart/Acetaminophen 1 each 08/24/24 15:04 Hydrocodone/Apap 5-325mg 1 Each Tab PO Q6HR PRN Pain Heparin Sodium (Porcine) 5,000 unit 08/24/24 21:00 08/24/24 20:18 Heparin Sodium,Porcine 5,000 Unit/Ml 1 Ml Vial SQ 5,000 unit Q12HR GEORGE Administration Hydromorphone HCl 0.5 mg 08/24/24 15:04 Hydromorphone 0.5 Mg/0.5 Ml Syringe IVP Q4HR PRN Severe Pain (Scale 7 to 10) Sodium Chloride 1,000 mls @ 130 mls/hr 08/24/24 08:30 08/25/24 05:33 Saline 0.9% IV 130 mls/hr .Q7H42M GEORGE Administration Ceftriaxone Sodium 2 gm/ 50 mls @ 100 mls/hr 08/24/24 16:00 08/24/24 16:51 Sodium Chloride IVPB 100 mls/hr Q24HR GEORGE Administration Ibuprofen 400 mg 08/24/24 08:22 08/25/24 03:22 Ibuprofen 400 Mg Tab PO 400 mg Q6HR PRN Administration Mild Pain or Fever > 100.5 Naloxone HCl 0.2 mg 08/24/24 08:22 Naloxone 0.4 Mg/Ml 1 Ml Vial IV Q2M PRN Opioid Reversal Intake and Output 08/24/24 08/25/24 08/25/24 22:59 06:59 14:59 Other: Voiding Method Bedside Commode Bedside Commode # Voids 2 2 Weight 113.398 kg 08/24/24 04:21 08/24/24 04:21
--- NOTE | 2024-08-25 11:23 | P.CNOR ---
History of Present Illness - HPI Consult date: 08/25/24 History of present illness: This is a 23-year-old female who is admitted for myalgias and tachycardia. Orthopedics is consulted due to a left ankle sprain. Patient states that she has is being treated for her left ankle by a doctor from [facility]. Patient states that she has been in a walking boot and using a walker. Patient states that she is planning on an MRI as an outpatient and has follow-up scheduled with an outside physician. Patient states that she has not had any significant swelling. Patient states that she twisted her left ankle at work. Patient denies any fever/chills, numbness, weakness or tingling. Patient's past medical history significant for asthma and morbid obesity. Review of Systems See HPI. Past Medical History Past Medical History: Asthma Additional Past Medical History / Comment(s): ANEMIA, BRONCHITIS, HEADACHES, History of Any Multi-Drug Resistant Organisms: None Reported Past Surgical History: Cholecystectomy, Tonsillectomy Past Anesthesia/Blood Transfusion Reactions: No Reported Reaction Past Psychological History: No Psychological Hx Reported Smoking Status: Never smoker Past Alcohol Use History: Rare Past Drug Use History: None Reported - Past Family History Father Family Medical History: Diabetes Mellitus, Sleep Apnea/CPAP/BIPAP Additional Family Medical History / Comment(s): SNORING, Mother Family Medical History: Sleep Apnea/CPAP/BIPAP Additional Family Medical History / Comment(s): (SNORING, THYROID, LIVER PROBLEMS. Medications and Allergies Home Medications Medication Instructions Recorded Confirmed Type No Known Home Medications 08/24/24 08/24/24 History Allergies Allergy/AdvReac Type Severity Reaction Status Date / Time No Known Allergies Allergy Verified 08/24/24 09:40 Physical Examination On exam patient is resting comfortably in bed in no acute distress. Patient is alert and oriented 3. There is a boot to the left lower extremity. Boot is removed revealing skin is intact and there is no significant swelling. There is no erythema or ecchymosis. Patient has some limitation of ankle motion secondary to pain. Left lower extremity is warm and well-perfused. Calf is soft and nontender to palpation. Sensation intact. Neurovascular status and circulatory status are intact. Results - Labs Labs: Abnormal Lab Results - Last 24 Hours (Table) 08/25/24 08/25/24 Range/Units 04:50 04:50 RBC 3.62 L (4.10-5.20) X 10*6/uL Hgb 10.9 L (12.0-15.0) g/dL Hct 31.8 L (37.2-46.3) % Chloride 112 H (96-109) mmol/L Carbon Dioxide 19.9 L (21.6-31.8) mmol/L BUN 7.7 L (9.0-27.0) mg/dL Creatinine 0.5 L (0.6-1.5) mg/dL Glucose 112 H (70-110) mg/dL Calcium 7.9 L (8.7-10.3) mg/dL Total Protein 5.5 L (6.2-8.2) g/dL Albumin 3.7 L (3.8-4.9) g/dL H & H 08/24/24 08/25/24 Range/Units 04:21 04:50 Hgb 13.8 10.9 L (11.4-16.0) gm/dL Hct 38.7 31.8 L (34.0-46.0) % Result Diagrams: 08/25/24 04:50 08/25/24 04:50 Assessment and Plan (1) Left ankle pain Current Visit: Yes Status: Acute Code(s): M25.572 - PAIN IN LEFT ANKLE AND JOINTS OF LEFT FOOT SNOMED Code(s): 449266387 Plan: 1. Recommend continuation of walking boot with use of her walker. 2. Patient has outpatient follow-up and further imaging planned with an outside physician.
[2024-08-25] MEDS: ARTIFICIAL TEARS-HYPROMELLOSE DROPS 15 ML BTL BOTH EYES PRN (11:37)
[2024-08-25] MEDS: IOPAMIDOL CONTRAST (ORAL USE) VIAL PO PRN (12:28)
--- NOTE | 2024-08-25 14:38 | P.DS ---
Providers Date of admission: 08/24/24 15:06 Expected date of discharge: 08/25/24 Attending physician: Tejas Preston MD Consults: 08/24/24 08:22 Consult Physician Urgent Consulting Provider: Cardiology Waqas Consult Reason/Comments: tachycardia Do you want consulting provider notified?: Yes 08/24/24 13:45 Consult Physician Routine Consulting Provider: Stef Bianchi Consult Reason/Comments: left foot sprain Do you want consulting provider notified?: Yes 08/24/24 15:03 Consult Physician Routine Consulting Provider: Adam Flanagan Consult Reason/Comments: sepsis Do you want consulting provider notified?: Yes Primary care physician: Mary Randall Hospital Course: Final Diagnoses: Flulike symptoms, body aches , myalgias ,reported fevers, possibly viral Sinus tachycardia, secondary to the above, echo pending Lactic acidosis on admission, resolved with IV fluid hydration Leukocytosis, resolved Chronic asthma, stable Left ankle sprain secondary to recent mechanical fall approximately 2 weeks ago Morbid obesity, BMI 42 Hospital course: This is a 23-year-old female admitted with multiple symptoms including flulike symptoms, body aches, myalgias, fevers, tachycardia, left ankle sprain and multiple other medical issues. Denies nausea vomiting or diarrhea. Denies bowel movement. Denies recent illness, exposure to sick contacts evaluated by cardiology and orthopedic surgery. Patient also complains of left ankle pain at rest. X-ray reported no evidence of acute fracture. patient reports she is following up with a physician from [facility] in regards to her left ankle.Ambulating with a walking boot and walker.reports she is planning on an MRI of the affected extremity outpatient with follow-up DrPreeti Appointment previously scheduled. Evaluated and cleared by orthopedic surgery for discharge. Evaluated by cardiology, cleared for discharge pending echo results. Patient will be discharged home today in a stable condition with guarded prognosis pending echo results, evaluation, recommendations and clearance for DC by infectious disease. The impression and plan of care has been dictated as directed. : I performed a history and examination of this patient, discussed the same with the dictator. I agree with the dictator's note ,documented as a scribe. Any additional findings or plans will be noted. Patient Condition at Discharge: Stable Plan - Discharge Summary New Discharge Prescriptions: New Famotidine [Pepcid] 20 mg PO DAILY #7 tablet cefUROXime axetiL [Ceftin] 500 mg PO BID 7 Days #14 tab Discharge Medication List Famotidine [Pepcid] 20 mg PO DAILY #7 tablet 08/27/24 [Rx] cefUROXime axetiL [Ceftin] 500 mg PO BID 7 Days #14 tab 08/27/24 [Rx] Follow up Appointment(s)/Referral(s): Orthopedic physician, Dr. [facility] [Other] - 1 Week (Patient reports she has been treated for her left ankle by a doctor from [facility], states she is planning on an MRI outpatient and has a follow-up appointment previously scheduled.) Tejas Preston MD [STAFF PHYSICIAN] - 1 Week Patient Instructions/Handouts: Endometriosis (DC), Polycystic Ovarian Syndrome (GEN), Tachycardia (ED) Activity/Diet/Wound Care/Special Instructions: Ceftin x 1 week as recommended per ID Follow-up with POST TENSIONING IRONWORKER HELPER outpatient as advised Patient reports she has outpatient follow-up and further imaging planned with an outside physician. Orthopedics surgery recommending continuation of walking boot/walker Discharge Disposition: HOME SELF-CARE
--- NOTE | 2024-08-25 15:40 | CT ---
EXAMINATION TYPE: CT abdomen pelvis w con DATE OF EXAM: 08/25/2024 COMPARISON: 05/15/2023 HISTORY: abdominal pain and tenderness x [address] DLP: 1659.5 mGycm Automated exposure control for dose reduction was used. TECHNIQUE: Helical acquisition of images was performed from the lung bases through the pelvis. CONTRAST: Performed with Oral Contrast and with IV Contrast, patient injected with 100 mL of Isovue 370. FINDINGS: The lung bases are clear. There is surgical absence of the gallbladder There is no biliary ductal dilatation. There is no focal mass or organomegaly involving the liver, pancreas, spleen or adrenal glands. There is no solid renal mass or hydronephrosis and there is homogeneous contrast enhancement of the r enal parenchyma. The caliber the abdominal aorta is normal is no retroperitoneal adenopathy or hemorr lavern. The bowel loops are normal in caliber and there is no evidence of dilatation or obstruction. No infla mmatory changes are identified in the bowel wall or mesentery. There is no free intraperitoneal air or fluid. There are bilateral adnexal masses. On the right there is mass measuring up to 4.6 cm on the left the re are 2 adjacent masses one measuring approximately 3.9 m. These most likely represent cysts but pel jovani ultrasound is recommended for further evaluation. The osseous structures and soft tissues are intact. IMPRESSION: Bilateral adnexal masses as described above. Pelvic ultrasound is recommended for further evaluation. These most likely represent cysts or possibly hemorrhagic cysts. No other abnormalities within the a bdomen or pelvis. [facility], , 08/25/2024 3:38 PM
--- NOTE | 2024-08-25 17:48 | CA ---
Transthoracic Echo Report Name: Carleen Romero Age: 23 Gender: F : 2000 Exam Date: 08/25/2024 13:47 Exam Location: [facility] Ht (in): 65 Wt (lb): 250 Ordering Physician: Wendy Cast Attending/Referring Phys: [id number], Segun Debarker Operator Phyllis Dwyer, CELINA Procedure CPT: Indications: SOB, sinus tachycardia, LV function Cardiac Hx: Technical Quality: Good Contrast 1: Total Dose (mL): Contrast 2: Total Dose (mL): MEASUREMENTS (Male / Female) Normal Values 2D ECHO LV Diastolic Diameter PLAX 4.8 cm 4.2 - 5.9 / 3.9 - 5.3 cm LV Systolic Diameter PLAX 2.6 cm IVS Diastolic Thickness 0.8 cm 0.6 - 1.0 / 0.6 - 0.9 cm LVPW Diastolic Thickness 0.7 cm 0.6 - 1.0 / 0.6 - 0.9 cm LV Relative Wall Thickness 0.3 RV Internal Dim ED PLAX 2.9 cm LA Systolic Diameter LX 3.2 cm 3.0 - 4.0 / 2.7 - 3.8 cm LV Diastolic Volume MOD 4C 117.9 cm??? LV Systolic Volume MOD 4C 48.4 cm??? LV Ejection Fraction MOD 4C 58.9 % LV Cardiac Index MOD 4C 1960.9 cm???/min???m??? LV Diastolic Length 4C 8.3 cm LV Systolic Length 4C 6.3 cm LV Diastolic Volume MOD 2C 70.6 cm??? LV Systolic Volume MOD 2C 37.0 cm??? LV Ejection Fraction MOD 2C 47.7 % LV Cardiac Index MOD 2C 950.0 cm???/min???m??? LV Diastolic Length 2C 7.2 cm LV Systolic Length 2C 6.3 cm LA Volume 37.7 cm??? 18 - 58 / 22 - 52 cm??? LA Volume Index 16.1 cm???/m??? 16 - 28 cm???/m??? M-MODE Aortic Root Diameter MM 3.4 cm AV Cusp Separation MM 2.2 cm DOPPLER AV Peak Velocity 131.8 cm/s AV Peak Gradient 7.0 mmHg MV Area PHT 4.5 cm??? Mitral E Point Velocity 123.5 cm/s Mitral A Point Velocity 69.7 cm/s Mitral E to A Ratio 1.8 MV Deceleration Time 170.1 ms TR Peak Velocity 212.7 cm/s TR Peak Gradient 18.1 mmHg FINDINGS Left Ventricle Left ventricular ejection fraction is estimated at 55-60 %. Left ventricular cavity size normal. Left ventricular wall thickness normal. Normal left ventricular wall motion. Right Ventricle Normal right ventricular size. Unable to estimate the right ventricular systolic pressure. Right Atrium Normal right atrial size. No right atrial thrombus or mass seen. Left Atrium Normal left atrial size. No left atrial thrombus or mass present. Mitral Valve Structurally normal mitral valve. No mitral stenosis, regurgitation or prolapse. Aortic Valve Trileaflet aortic valve. No aortic valve stenosis or regurgitation. Tricuspid Valve Structurally normal tricuspid valve. No tricuspid stenosis, regurgitation or prolapse. Pulmonic Valve Structurally normal pulmonic valve. Trace pulmonic regurgitation. Pericardium No pericardial or pleural effusion. Aorta Normal size aortic root and proximal ascending aorta. CONCLUSIONS Normal left ventricular size and systolic function No significant valvular abnormalities Previewed by: Dr. Jose Jordan MD (Electronically Signed) Final Date: 25 August 2024 17:47
--- NOTE | 2024-08-26 08:16 | P.CONS ---
History of Present Illness - Reason for Consult Consult date: 08/25/24 Sepsis Requesting physician: Ortiz Winston - Chief Complaint Fever and bodyaches x 1 day - History of Present Illness Patient is a 23-year-old female with a past medical history significant for asthma in this patient who recently has sprained her left ankle at work, patient presented to the hospital yesterday morning for evaluation of diffuse bodyaches and tachycardia symptoms started the night before presentation to the hospital and has been complaining of pain all over her body and apparently the patient also have a fever at home where the patient took some Tylenol patient denies having any headache some sore throat but no other URI symptoms denies any chest pain shortness of breath minimal cough no nausea no vomiting some lower abdominal discomfort mild in intensity without any radiation denies any diarrhea or constipation on presentation to the hospital the patient was running a low-grade fever of 99.3 F patient was mildly tachycardic but not hypotensive or hypoxic and no need for supplemental oxygen patient did have white count of 13.6 with a left shift creatinine has been normal electrolytes are normal lactic acid was elevated subsequent normalized and liver enzymes are normal patient UA was negative urine drug screen was positive for opiates influenza RSV and had to rule antibodies were negative blood cultures obtained which are currently pending patient did have a chest x-ray no acute pulmonary process infectious he was consulted for further management Review of Systems Positive point and negatives has been mentioned in the HPI, complete review of systems was performed and all other systems are negative Past Medical History Past Medical History: Asthma Additional Past Medical History / Comment(s): ANEMIA, BRONCHITIS, HEADACHES, History of Any Multi-Drug Resistant Organisms: None Reported Past Surgical History: Cholecystectomy, Tonsillectomy Past Anesthesia/Blood Transfusion Reactions: No Reported Reaction Past Psychological History: No Psychological Hx Reported Smoking Status: Never smoker Past Alcohol Use History: Rare Past Drug Use History: None Reported - Past Family History Father Family Medical History: Diabetes Mellitus, Sleep Apnea/CPAP/BIPAP Additional Family Medical History / Comment(s): SNORING, Mother Family Medical History: Sleep Apnea/CPAP/BIPAP Additional Family Medical History / Comment(s): (SNORING, THYROID, LIVER PROBLEMS. Medications and Allergies Home Medications Medication Instructions Recorded Confirmed Type No Known Home Medications 08/24/24 08/24/24 History Allergies Allergy/AdvReac Type Severity Reaction Status Date / Time No Known Allergies Allergy Verified 08/24/24 09:40 Physical Exam Vitals: Vital Signs Temp Pulse Pulse Resp BP BP Pulse Ox 08/25/24 07:00 98.0 F 79 16 112/68 100 08/25/24 01:23 98.2 F 88 17 106/69 96 08/24/24 20:00 18 08/24/24 18:30 98.5 F 93 16 116/79 98 08/24/24 17:44 73 16 100/65 99 08/24/24 16:32 68 18 107/64 98 08/24/24 13:39 78 16 102/59 97 08/24/24 12:49 73 18 108/69 98 08/24/24 10:38 104 H 16 118/82 99 Intake and Output 08/24/24 08/25/24 08/25/24 22:59 06:59 14:59 Other: Voiding Method Bedside Commode Bedside Commode Toilet # Voids 2 2 Weight 113.398 kg GENERAL DESCRIPTION: Young female lying in bed, no distress. No tachypnea or accessory muscle of respiration use. HEENT: Shows Pallor , no scleral icterus. Oral mucous membrane is dry. No pharyngeal erythema or thrush NECK: Trachea central, no thyromegaly. LUNGS: Unlabored breathing. Clear to auscultation anteriorly. No wheeze or crackle. HEART: S1, S2, regular rate and rhythm. No loud murmur ABDOMEN: Soft, lower abdominal tenderness EXTREMITIES: No edema of feet. SKIN: Left below the breast area did has small area of folliculitis but no drainage NEUROLOGICAL: The patient is awake, alert, oriented x3, mood and affect normal. Results CBC & Chem 7: 08/25/24 04:50 08/25/24 04:50 Labs: Abnormal Lab Results - Last 24 Hours (Table) 08/25/24 08/25/24 Range/Units 04:50 04:50 RBC 3.62 L (4.10-5.20) X 10*6/uL Hgb 10.9 L (12.0-15.0) g/dL Hct 31.8 L (37.2-46.3) % Chloride 112 H (96-109) mmol/L Carbon Dioxide 19.9 L (21.6-31.8) mmol/L BUN 7.7 L (9.0-27.0) mg/dL Creatinine 0.5 L (0.6-1.5) mg/dL Glucose 112 H (70-110) mg/dL Calcium 7.9 L (8.7-10.3) mg/dL Total Protein 5.5 L (6.2-8.2) g/dL Albumin 3.7 L (3.8-4.9) g/dL Assessment and Plan (1) SIRS (systemic inflammatory response syndrome) Current Visit: Yes Status: Acute Code(s): R65.10 - SIRS OF NON-INFECTIOUS ORIGIN W/O ACUTE ORGAN DYSFUNCTION SNOMED Code(s): 053569938 (2) Leukocytosis Current Visit: Yes Status: Acute Code(s): D72.829 - ELEVATED WHITE BLOOD CELL COUNT, UNSPECIFIED SNOMED Code(s): 009174386 Plan: 1patient presented to the hospital with fever generalized bodyaches and this patient who did have elevated white count mild tachycardia and patient bradycardia for SIRS source possibly abdominal in this patient noticed to have lower abdominal tenderness on clinical examination, patient also have spotty folliculitis left breast fold may be playing a role in her symptomatology. 2we will obtain a CT of abdominal pelvis with contrast to rule out any abdominal pathology. 3nursing staff has been advised to obtain the culture and if they do follow colitis to the left breast for started to drain. 4continue with Rocephin while waiting for the culture to finalize. We will follow on clinical condition and cultures to further adjust medication if needed Thank you for this consultation we will follow the patient along with you Dictation was produced using [employer] dictation software. please excuse any grammatical, word or spelling errors. Time with Patient: Greater than 30
[2024-08-26 08:27] LABS: Basophils # (A) 0.03 X 10*3/uL (0.00-0.10); Basophils % (A) 0.4 %; Eosinophils # (A) 0.05 X 10*3/uL (0.04-0.35); Eosinophils % (A) 0.6 %; HCT 33.4 % (37.2-46.3); HGB 11.4 g/dL (12.0-15.0); Lymphocytes # (A) 2.58 X 10*3/uL (0.90-5.00); Lymphocytes % (A) 32.3 %; MCH 29.5 pg (27.0-32.0); MCHC 34.1 g/dL (32.0-37.0); MCV 86.3 FL (80.0-97.0); Mean Platelet Volume 10.2 FL (9.5-12.2); Monocytes # (A) 0.68 X 10*3/uL (0.20-1.00); Monocytes % (A) 8.5 %; NRBC Per 100 WBC 0 X 10*3/uL (0.00-0.01); Neutrophils # (A) 4.62 X 10*3/uL (1.80-7.70); Neutrophils % (A) 57.7 %; Platelet Count 226 X 10*3/uL (140-440); RBC 3.87 X 10*6/uL (4.10-5.20)
[2024-08-26 08:43] LABS: Blood Urea Nitrogen 10.4 mg/dL (9.0-27.0); Carbon Dioxide 21.4 mmol/L (21.6-31.8); Chloride 109 mmol/L (96-109); Glucose 102 mg/dL (70-110); Potassium 3.9 mmol/L (3.5-5.5); Sodium 142 mmol/L (135-145)
[2024-08-26 08:44] LABS: Calcium 8.7 mg/dL (8.7-10.3)
--- NOTE | 2024-08-26 09:47 | P.PN ---
Subjective HISTORY OF PRESENT ILLNESS: This is a 23-year-old female with a past medical history significant for asthma and morbid obesity. Patient does not follow with a pot feeder. We have been asked to see the patient in consultation for tachycardia. Patient examined at the bedside. Patient states that she initially had flulike symptoms for the past couple days. She states that her symptoms began to increase in severity and she had pain "all over" her body. She does report that she was short of breath at home and had some wheezing and a cough. She does report having some palpitations yesterday but none today. She also reports a fever at home. Patient also gives history that she slipped and fell a couple weeks ago and was found to have an ankle sprain. She is a non-smoker. Initial EKG revealed sinus tachycardia with heart rate of 142. At the time of examination, telemetry reveals sinus mechanism with a heart rate in the 80s. DIAGNOSTICS: - EKG reveals sinus tachycardia with no signs of acute ischemia - Chest xray negative for acute process - Laboratory data: WBC 6.72. Hemoglobin 10.9. Platelet count 210. D-dimer 0.31. Sodium 142. Potassium 4.0. BUN 7.7. Creatinine 0.5. Lactic acid 2.9. Repeat 1.2. TSH 2.410. - Current home cardiac medications include none 08/26/2024 Patient examined this morning at the bedside. Patient denies any chest pain or pressure. She denies any shortness of breath. Vital signs are stable. Patient's tachycardia has resolved. Echocardiogram completed revealing ejection fraction 55 to 60% with no significant valvular abnormalities. PHYSICAL EXAM: VITAL SIGNS: Reviewed. GENERAL: Well-developed in no acute distress. HEENT: Head is normocephalic. Pupils are equal, round. Sclerae anicteric. Mucous membranes of the mouth are moist. Neck supple. No JVD or thyromegaly LUNGS: Respirations even and unlabored. Lungs essentially clear to auscultation bilaterally. HEART: Regular rate and rhythm. S1 and S2 heard. ABDOMEN: Soft. Nondistended. Nontender. EXTREMITIES: Normal range of motion. No clubbing or cyanosis. Peripheral pulses intact. No lower extremity edema NEUROLOGIC: Awake and alert. Oriented x 3. ASSESSMENT: Flulike symptoms with fever at home, possible viral illness Sinus tachycardia, physiological, secondary to above History of asthma Morbid obesity: BMI 41.6 Recent mechanical fall with left ankle sprain PLAN: Patient is currently stable from a cardiac perspective with no further inpatient recommendations Discharge per medicine We will sign off. Please reconsult if needed. Nurse practitioner note has been reviewed by physician. Signing provider agrees with the documented findings, assessment, and plan of care documented by ORCHARD WORKER as a scribe. Objective - Vital Signs Vital signs: Vital Signs Temp 98.1 F 08/26/24 07:00 Pulse 66 08/26/24 07:00 Resp 18 08/26/24 07:00 BP 107/71 08/26/24 07:00 Pulse Ox 99 08/26/24 07:00 FiO2 Intake & Output 08/25/24 08/26/24 08/26/24 18:59 06:59 18:59 Other: Voiding Method Toilet Toilet # Voids 1 2 - Labs CBC & Chem 7: 08/26/24 04:41 08/26/24 04:41 Labs: Abnormal Lab Results - Last 24 Hours (Table) 08/26/24 08/26/24 Range/Units 04:41 04:41 RBC 3.87 L (4.10-5.20) X 10*6/uL Hgb 11.4 L (12.0-15.0) g/dL Hct 33.4 L (37.2-46.3) % Carbon Dioxide 21.4 L (21.6-31.8) mmol/L Creatinine 0.5 L (0.6-1.5) mg/dL BUN/Creatinine Ratio 20.80 H (12.00-20.00) Ratio Microbiology - Last 24 Hours (Table) 08/24/24 15:27 Blood Culture - Preliminary Blood
[2024-08-26] MEDS: POTASSIUM CHLORIDE ER 20 MEQ TAB.ER PO STA (11:02)
--- NOTE | 2024-08-26 11:21 | US ---
EXAMINATION TYPE: US pelvic complete DATE OF EXAM: 08/26/2024 COMPARISON: CT abdomen and pelvis 08/25/2024 CLINICAL INDICATION: Female, 23 years old with history of abnormal CT ?Hemorrhagic cyst vs abscess; p elvic pain, abn CT, h/o PCOS, possible endometriosis . TECHNIQUE: TA. Transabdominal grayscale FINDINGS: Date of LMP: 07/27/2024 EXAM MEASUREMENTS: Uterus: 7.1 x 5.2 x 3.1 cm Endometrial Stripe: 1.2 cm Right Ovary: 4.0 x 3.4 x 3.4 cm Left Ovary: 5.4 x 5.1 x 4.4 cm 1. Uterus: Anteverted wnl 2. Endometrium: wnl 3. Right Ovary: 2.7 x 3.0 x 3.0cm hypoechoic lesion that may represent endometrioma versus other hoda ology 4. Left Ovary: 4.0 x 4.0 x 4.2cm septated cyst 5. Bilateral Adnexa: wnl 6. Posterior cul-de-sac: wnl Unremarkable anteverted uterus with endometrium within normal limits. Bilateral adnexa and posterior cul-de-sac appear within normal limits. Left ovarian thin-walled cyst with thin septation. Questionab le additional echoes. Right ovarian minimally hypoechoic lesion. IMPRESSION: Right ovarian 3.0 cm lesion which may represent an endometrioma versus other etiologies. Additional l eft ovarian cystic lesion within septation. Probable hemorrhagic cyst. No discrete evidence for absc ess. Consider short-term follow-up ultrasound in 6-12 weeks to assess for interval change versus MRI pelvis. [facility], , 08/26/2024 11:18 AM
--- NOTE | 2024-08-26 14:33 | P.PN ---
Subjective Progress Note Date: 08/26/24 Principal diagnosis: Reason for follow-up is SIRS/fever Patient is a 23-year-old female with a past medical history significant for asthma in this patient who recently has sprained her left ankle at work, patient presented to the hospital for evaluation of bodyaches fever at home patient did have a mild elevated white count CT abdominal pelvis did shows bilateral renal cyst. On today's evaluation that is 08/26/2024, the patient continues to be afebrile, the patient is on room air and breathing comfortably, the Pt denies having any chest pain or cough, the patient still complaining of some lower abdominal discomfort but no vomiting or diarrhea. Patient white count is 8.0, creatinine 0.5 Objective - Vital Signs Vital signs: Vital Signs Temp 98.1 F 08/26/24 07:00 Pulse 66 08/26/24 07:00 Resp 18 08/26/24 07:00 BP 107/71 08/26/24 07:00 Pulse Ox 99 08/26/24 07:00 FiO2 Intake & Output 08/25/24 08/26/24 08/26/24 18:59 06:59 18:59 Intake Total 560 Balance 560 Intake: Oral 560 Other: Voiding Method Toilet Toilet # Voids 1 2 - Exam GENERAL DESCRIPTION: Young female up in bed in no distress RESPIRATORY SYSTEM: Unlabored breathing , decreased breath sounds at bases HEART: S1 S2 regular rate and rhythm , ABDOMEN: Soft , no tenderness EXTREMITIES: No edema feet - Labs CBC & Chem 7: 08/26/24 04:41 08/26/24 04:41 Labs: Abnormal Lab Results - Last 24 Hours (Table) 08/26/24 08/26/24 Range/Units 04:41 04:41 RBC 3.87 L (4.10-5.20) X 10*6/uL Hgb 11.4 L (12.0-15.0) g/dL Hct 33.4 L (37.2-46.3) % Carbon Dioxide 21.4 L (21.6-31.8) mmol/L Creatinine 0.5 L (0.6-1.5) mg/dL BUN/Creatinine Ratio 20.80 H (12.00-20.00) Ratio Microbiology - Last 24 Hours (Table) 08/24/24 15:27 Blood Culture - Preliminary Blood Assessment and Plan (1) SIRS (systemic inflammatory response syndrome) Current Visit: Yes Status: Acute Code(s): R65.10 - SIRS OF NON-INFECTIOUS ORIGIN W/O ACUTE ORGAN DYSFUNCTION SNOMED Code(s): 908466873 (2) Leukocytosis Current Visit: Yes Status: Acute Code(s): D72.829 - ELEVATED WHITE BLOOD CELL COUNT, UNSPECIFIED SNOMED Code(s): 186938721 Plan: 1patient presented to the hospital with fever generalized bodyaches and this patient who did have elevated white count mild tachycardia and patient bradycardia for SIRS source possibly abdominal in this patient noticed to have lower abdominal tenderness on clinical examination, patient also have spotty folliculitis left breast fold may be playing a role in her symptomatology. 2 CT of abdominal pelvis with contrast suggestive of bilateral ovarian cyst confirmed on the pelvic ultrasound OB has been consulted 3patient did have resolution of her fever white count normalized continue with Rocephin while waiting for the culture to finalize. Dictation was produced using [employer] dictation software. please excuse any grammatical, word or spelling errors. Time with Patient: Less than 30
--- NOTE | 2024-08-26 22:26 | P.OBCN ---
History of Present Illness Consult date: 08/26/24 Reason for consult: ovarian cyst Chief complaint: General malaise with tachycardia and bodyaches History of present illness: The patient is a 23-year-old 0 para 0 who presents to the hospital for complaints of tachycardia with some shortness of breath and feeling generally not well. She had bodyaches throughout her entire body and was found to be tachycardic with a slightly elevated white count. She underwent CAT scan of the abdomen and pelvis and then subsequent ultrasound of the pelvis which demonstrated bilateral ovarian cysts, 1 of which was approximately 3 cm and possibly consistent with an endometrioma while the opposite ovary had likely 2 simple cysts 1 larger and 1 smaller versus a single cyst with a septation present. On questioning, the patient has been told in the past that she has polycystic ovarian syndrome. She has been tried on Depo-Provera which she did not tolerate and subsequently had a Kyleena IUD placed which dislodged itself approximately 3 months after placement. She is currently using no form of contraception. She reports that her cycles are quite irregular ranging from anywhere from 21 days to 6 weeks apart and cannot be tracked. She does have moderate discomfort prior to the onset of menses and then through menses which may be consistent with endometriosis. Obstetrical history: 0 para 0 currently on no form of contraception. Gynecologic history: Unremarkable with no history of infections to include STDs. It is unclear whether she may have had a Pap smear in the past but is only just 23 at which time it becomes indicated. Review of Systems Review of systems is confined to history of present illness. Past Medical History Past Medical History: Asthma Additional Past Medical History / Comment(s): ANEMIA, BRONCHITIS, HEADACHES, History of Any Multi-Drug Resistant Organisms: None Reported Past Surgical History: Cholecystectomy, Tonsillectomy Past Anesthesia/Blood Transfusion Reactions: No Reported Reaction Past Psychological History: No Psychological Hx Reported Smoking Status: Never smoker Past Alcohol Use History: Rare Past Drug Use History: None Reported - Past Family History Father Family Medical History: Diabetes Mellitus, Sleep Apnea/CPAP/BIPAP Additional Family Medical History / Comment(s): SNORING, Mother Family Medical History: Sleep Apnea/CPAP/BIPAP Additional Family Medical History / Comment(s): (SNORING, THYROID, LIVER PROBLEMS. Medications and Allergies Home Medications Medication Instructions Recorded Confirmed Type No Known Home Medications 08/24/24 08/24/24 History Allergies Allergy/AdvReac Type Severity Reaction Status Date / Time No Known Allergies Allergy Verified 08/24/24 09:40 Exam Vital Signs Temp Pulse Resp BP Pulse Ox 08/26/24 20:35 72 08/26/24 19:07 98.4 F 82 17 115/75 99 08/26/24 15:00 98.0 F 72 16 102/70 99 08/26/24 07:00 98.1 F 66 18 107/71 99 08/26/24 01:58 98.5 F 79 17 107/71 99 Intake and Output 08/26/24 08/26/24 08/26/24 06:59 14:59 22:59 Intake Total 560 678 Balance 560 678 Intake: Oral 560 678 Other: Voiding Method Toilet # Voids 2 2 In general, this is a well-developed, mild to moderately obese white female in no acute distress. The remainder of the examination is deferred to her medical team. Pelvic exam is not indicated at this time. Results Result Diagrams: 08/26/24 04:41 08/26/24 04:41 Abnormal Lab Results - Last 24 Hours (Table) 08/26/24 08/26/24 Range/Units 04:41 04:41 RBC 3.87 L (4.10-5.20) X 10*6/uL Hgb 11.4 L (12.0-15.0) g/dL Hct 33.4 L (37.2-46.3) % Carbon Dioxide 21.4 L (21.6-31.8) mmol/L Creatinine 0.5 L (0.6-1.5) mg/dL BUN/Creatinine Ratio 20.80 H (12.00-20.00) Ratio Microbiology - Last 24 Hours (Table) 08/24/24 15:27 Blood Culture - Preliminary Blood Assessment and Plan (1) Ovarian cyst Current Visit: Yes Status: Acute Code(s): N83.209 - UNSPECIFIED OVARIAN CYST, UNSPECIFIED SIDE SNOMED Code(s): 66497343 Plan: I have no concern that the pelvic findings on ultrasound and CT scan are at the root of her presentation. These are likely incidental findings and may have been present for quite some time. The most indicated treatment for both PCOS and her ovarian cysts is an oral contraceptive pill which is not available in the hospital and would be best started with the onset of her next cycle. I have reviewed the natural history of endometriosis as well as polycystic ovarian syndrome with the patient and explained why an oral contraceptive pill is effective for this both in controlling cycles as well as reversing some of the chemical changes associated with PCOS. I have recommended that she follow-up as an outpatient at approximately 3 months after starting the oral contraceptive pill for repeat ultrasound. She is certainly welcome to do this in our office but her current plan is to move back to [place] in early October at which time she can follow-up there. A prescription has been left on the chart for Apri oral contraceptive pills and have discussed with her how to use them as well as potential risks and complications. Thank you for the consult. I will otherwise sign off the case and let us further input is deemed necessary. Time with Patient: Less than 30
[2024-08-27 08:18] VITALS: BP 99/69; PULSE 81; RESP 17; TEMP 98.5
--- NOTE | 2024-08-28 14:18 | P.PN ---
Subjective Progress Note Date: 08/27/24 Principal diagnosis: Reason for follow-up is SIRS/fever Patient is a 23-year-old female with a past medical history significant for asthma in this patient who recently has sprained her left ankle at work, patient presented to the hospital for evaluation of bodyaches fever at home patient did have a mild elevated white count CT abdominal pelvis did shows bilateral renal cyst. On today's evaluation that is 08/27/2024, Patient is afebrile patient is currently on room air and denies having any shortness of breath, the patient denies any chest pain or cough, the patient denies any nausea vomiting did not have any abdominal pain and no diarrhea, no new symptoms. Patient did not have any lab draw today culture has been negative so far Objective - Vital Signs Vital signs: Vital Signs Temp 98.5 F 08/27/24 07:20 Pulse 81 08/27/24 07:20 Resp 17 08/27/24 07:20 BP 99/69 08/27/24 07:20 Pulse Ox 98 08/27/24 07:20 FiO2 Intake & Output 08/26/24 08/27/24 08/27/24 18:59 06:59 18:59 Intake Total 1238 118 Balance 1238 118 Intake: Oral 1238 118 Other: # Voids 2 0 - Exam GENERAL DESCRIPTION: Young female up in bed in no distress RESPIRATORY SYSTEM: Unlabored breathing , decreased breath sounds at bases HEART: S1 S2 regular rate and rhythm , ABDOMEN: Soft , no tenderness EXTREMITIES: No edema feet - Labs CBC & Chem 7: 08/26/24 04:41 08/26/24 04:41 Labs: Microbiology - Last 24 Hours (Table) 08/24/24 15:27 Blood Culture - Preliminary Blood Assessment and Plan (1) SIRS (systemic inflammatory response syndrome) Status: Acute Code(s): R65.10 - SIRS OF NON-INFECTIOUS ORIGIN W/O ACUTE ORGAN DYSFUNCTION SNOMED Code(s): 347390875 (2) Leukocytosis Status: Acute Code(s): D72.829 - ELEVATED WHITE BLOOD CELL COUNT, UNSPECIFIED SNOMED Code(s): 827584398 Plan: 1patient presented to the hospital with fever generalized bodyaches and this patient who did have elevated white count mild tachycardia and patient bradycardia for SIRS source possibly abdominal in this patient noticed to have lower abdominal tenderness on clinical examination, patient also have spotty folliculitis left breast fold may be playing a role in her symptomatology. 2 CT of abdominal pelvis with contrast suggestive of bilateral ovarian cyst confirmed on the pelvic ultrasound OB has been consulted has recommended o utpatient evaluation 3patient did have resolution of her fever white count normalized, culture have been negative so far without improvement on Rocephin finish therapy with oral Ceftin discussed with CANINE ENFORCEMENT OFFICER for admitting team Dictation was produced using [employer] dictation software. please excuse any gr ammatical, word or spelling errors. Time with Patient: Less than 30
== END 2024-08-27 12:40 | disposition home or self-care (01) | DRG 760 ==
LOC: EC 03:34 → 6NMEDSUR 08:27 → OBSVTOIN 15:06 → 6NMEDSUR 15:06
PROVIDERS: ADMIT Family Medicine; ATTEND Family Medicine
DX: E28.2 Polycystic ovarian syndrome (principal); R65.10 Systemic inflammatory response syndrome (SIRS) of non-infectious origin without acute organ dysfunction; Z68.41 Body mass index [BMI] 40.0-44.9, adult; E66.01 Morbid (severe) obesity due to excess calories; J45.909 Unspecified asthma, uncomplicated; S93.402A Sprain of unspecified ligament of left ankle, initial encounter; W01.0XXA Fall on same level from slipping, tripping and stumbling without subsequent striking against object, initial encounter; Y99.0 Civilian activity done for income or pay; Z79.899 Other long term (current) drug therapy; Z83.3 Family history of diabetes mellitus
CPT/HCPCS: 36415; 71046; 74177; 76856; 80048; 80053; 80306; 81003; 81025; 83605; 84443; 85025; 85379; 86308; 87040; 87636; 93005; 93306; 96361; 96365; 96375; 99285